=== PATIENT | female | born 1935 | race Caucasian/White ===

== ENCOUNTER → 2019-12-15 | Outpatient (CLI) | payer MEDICARE ==
--- NOTE | 2019-12-15 12:28 | RAD ---
EXAM: Soft tissue ultrasound right upper arm. HISTORY: Abnormal mass right upper arm. COMPARISON: None. FINDINGS: Sonographic evaluation of the right anterior upper arm was performed at the site of concern. The palpable mass corresponds with the biceps muscle. The bicipital aponeurosis appears torn and distally with a small interceding hematoma. The gap between the torn ends is not well-visualized but appears to span 11 mm. The underlying brachialis muscle appears intact. Comparison images on the left reveal no abnormality. IMPRESSION: 1. Findings consistent with a tear of the right bicipital aponeurosis distally, with 11 mm retraction of the torn end. Electronically signed by: Xiomy Montero MD (12/15/2019 12:25 PM) [id number]
== END | disposition home or self-care (01) ==
LOC: US 10:40
PROVIDERS: ATTEND Family Medicine
DX: R22.31 Localized swelling, mass and lump, right upper limb (principal)
CPT/HCPCS: 76881

== ENCOUNTER → 2020-10-12 | Outpatient (CLI) | payer MEDICARE ==
--- NOTE | 2020-10-12 10:48 | RAD ---
EXAM: DUAL ENERGY X-RAY ABSORPTIOMETRY (DEXA). HISTORY: Postmenopausal screening. FINDINGS: The lowest measured T-score is -2.5 in the right hip, based on a bone mineral density of 0. 651 g/cm^2. Refer to the worksheets for full detail. There has been a 15.6 percent decrease in density of the right hip and 5.7 percent increase in densit y of the lumbar spine compared to a study performed 02/26/2007. IMPRESSION: 1. Osteoporosis. Bone mineral density yields a T-score of -2.5 or less. Fracture risk is high. 2. FRAX report: Not calculated. METHODOLOGY: Dual energy x-ray absorptiometry was performed to measure bone mineral density. The foll owing analysis is based on the 2019 Official Positions of the International Society for Clinical Dens itometry: Measurements of the hips and the average of L1-L4 are preferred. When the spine and/or hip cannot be feasibly measured or interpreted, or in the setting of hyperparathyroidism, distal radial bone minera l density may be measured. The lumbar spine T-score is based on the average bone mineral density of L1-L4. In the setting of art ifact or anatomic abnormality, some lumbar levels may be excluded, and the remaining levels used for calculation. A single lumbar level is not used for diagnosis, and if only a single level is available for assessment, another anatomic site will be used to assign a diagnosis. The hip T-score is based on the bone mineral density measurement of the femoral neck or total proxima l femur of either side, whichever is lowest. Bilateral mean values are not used for diagnosis. The forearm T-score is derived from 33% of the distal radius of the nondominant forearm. Electronically signed by: Kaykay Wing MD (10/12/2020 10:46 AM) [id number]
== END ==
LOC: DXRAD 09:48
PROVIDERS: ATTEND Physician Assistant
DX: M81.0 Age-related osteoporosis without current pathological fracture (principal)
CPT/HCPCS: 77080

== ENCOUNTER → 2021-12-20 | Outpatient (CLI) | payer MEDICARE ==
--- NOTE | 2021-12-21 09:20 | RAD ---
XR ABDOMEN 2V History: Abdominal pain, constipation Comparison: None. Technique: Upright and supine radiographs of the abdomen and pelvis. Findings: Bowel gas pattern: Nonobstructive bowel gas pattern. No excessive colonic stool burden. Free air: None. Abnormal calcifications: Bilateral femoral artery atherosclerotic calcifications. Left pelvic phlebol ith. Bones: No acute findings. Lower lumbar degenerative change. Other: Postsurgical changes of the mediastinum. Impression: 1. Nonobstructive bowel gas pattern. No excessive colonic stool burden. Electronically signed by: Jeevan Angel MD (12/21/2021 9:18 AM) [id number]
== END ==
LOC: RAD 13:26
PROVIDERS: ATTEND Physician Assistant
DX: I70.203 Unspecified atherosclerosis of native arteries of extremities, bilateral legs (principal); I86.2 Pelvic varices; M47.816 Spondylosis without myelopathy or radiculopathy, lumbar region; K59.00 Constipation, unspecified; Z98.890 Other specified postprocedural states
CPT/HCPCS: 74019